=== PATIENT | female | born 1945 | race Caucasian/White ===

== ENCOUNTER → 2016-09-23 | Outpatient (CLI) | payer MEDICARE, BC | LOC: KOH-I 07:58 | DX: Z86.19 Personal history of other infectious and parasitic diseases (principal); K76.0 Fatty (change of) liver, not elsewhere classified | CPT/HCPCS: 76705 ==

== ENCOUNTER 2020-08-19 16:39 | Emergency (ER) | payer MEDICARE, BC ==
[2020-08-19 18:09] LABS: HEMOGLOBIN 14.3 gm/dl (12.3-15.3); RED BLOOD COUNT 4.6 M/UL (4.00-5.10); WHITE BLOOD COUNT 8.4 K/UL (4.5-11.0)
[2020-08-19 18:36] LABS: BUN/CREATININE RATIO 32 (0-10)
== END 2020-08-19 19:45 | disposition home or self-care (01) ==
LOC: ER1 16:39
PROVIDERS: Nurse Practitioner
DX: R42 Dizziness and giddiness (principal); R01.1 Cardiac murmur, unspecified; E11.9 Type 2 diabetes mellitus without complications; I10 Essential (primary) hypertension; E03.9 Hypothyroidism, unspecified; Z86.19 Personal history of other infectious and parasitic diseases; Z79.899 Other long term (current) drug therapy; Z88.5 Allergy status to narcotic agent
CPT/HCPCS: 70450; 70496; 70498; 71045; 80053; 82550; 82553; 83605; 83690; 83874; 84484; 85025; 85610; 93005; 99284; Q9967

== ENCOUNTER → 2020-09-16 | Outpatient (CLI) | payer MEDICARE | LOC: ECHO 10:59 | DX: R01.1 Cardiac murmur, unspecified (principal); I51.7 Cardiomegaly; I34.0 Nonrheumatic mitral (valve) insufficiency; R93.1 Abnormal findings on diagnostic imaging of heart and coronary circulation | CPT/HCPCS: ECHO; 93306 ==

== ENCOUNTER → 2020-10-22 | Outpatient (CLI) | payer MEDICARE, BC | LOC: CATH 09-18 10:00 | DX: R55 Syncope and collapse (principal) ==

== ENCOUNTER → 2020-11-05 | Outpatient (CLI) | payer MEDICARE | LOC: HEART 5 07:54 | DX: R07.9 Chest pain, unspecified (principal) | CPT/HCPCS: 78452; A9502; J2785 ==